=== PATIENT | male | born 2000 | race African-American/Black ===

== ENCOUNTER 2020-11-20 11:30 | Emergency (ER) | payer OTHER ==
[2020-11-20 11:45] VITALS: BP 136/68
--- NOTE | 2020-11-20 12:40 | ED Physician Documentation ---
History of Present Illness - Stated complaint Stated Complaint: SOA - Chief complaint Chief Complaint: Resp - Additonal information Additional information: 20-year-old male presents to the emergency department for evaluation of 2 days cough, sore throat, congestion, loss of taste and smell. He also reports feeling somewhat short of air. He is fully vaccinated against Covid 19. Denies known sick contacts. He is in the [place]. Review of Systems Constitutional: denies: Fever, Chills Eyes: reports: Reviewed and negative Ears: reports: Reviewed and negative Nose: reports: Rhinorrhea / runny nose, Congestion, Other (loss of smell) Throat: reports: Sore throat Cardiac: reports: Chest pain / pressure, Palpitations Respiratory: reports: Dyspnea, Cough GI: reports: Abdominal Pain, Nausea, Vomiting : denies: Dysuria, Frequency, Hesitancy Skin: reports: Reviewed and negative Musculoskeletal: reports: Reviewed and negative PD PAST MEDICAL HISTORY - Allergies Allergies/Adverse Reactions: Allergies Allergy/AdvReac Type Severity Reaction Status Date / Time No Known Drug Allergies Allergy Verified 11/20/20 11:45 PD ED PE EXPANDED - General General: Alert, No acute distress, Well developed/nourished - HEENT HEENT: Rhinorrhea, Moist mucous membranes, Pharyngeal erythema. No: Swollen tonsils, Tonsillar exudate, CURRENCY EXAMINER - Neck Neck: Supple w/out meningeal sx. No: Adenopathy - Cardiac Cardiac: Regular Rate, Radial strong equal, Pedal strong equal, Cap refill < 2 sec - Respiratory Respiratory: Clear to ausultation chang. No: Distress, Labored - Abdomen Abdomen: Normal Bowel sounds. No: Tender to palpation - Derm Derm: Normal color, Warm and dry. No: Rash - Extremities Extremities: Normal. No: Deformity, Tenderness - Neuro Neuro: Alert and Oriented X 3, CNII-XII intact Results - Vitals Vitals: Vital Signs - 24 hr 11/20/20 11:41 Temperature 37.0 C Heart Rate 87 Respiratory 16 Rate Blood Pressure 136/68 H O2 Saturation 98 Oxygen O2 Source Room air PD MEDICAL DECISION MAKING - ED course Complexity details: reviewed results, re-evaluated patient, d/w patient ED course: 20-year-old male presents emergency department for evaluation of upper respiratory infections that include cough, congestion loss of taste smell and sore throat. Rapid strep is negative. However symptoms are more concerning for Covid. His cardiopulmonary exam is fairly unremarkable. No hypoxia or distress on room air. Covid test is pending. Advise quarantine until test results known. Emergent return precautions discussed. Departure - Departure Disposition: 01 Home, Self Care Clinical Impression: Upper respiratory infection Qualifiers: URI type: unspecified viral URI Qualified Code(s): J06.9 - Acute upper respiratory infection, unspecified Condition: Stable Record reviewed to determine appropriate education?: Yes Comments: Your strep testing is negative. But given the symptoms that you have we are screening you for COVID-19. You have a Covid test pending. You need to self quarantine until the result is done and negative. Do not leave your house. Do not get near anybody. The results should be done in 48 to 72 hours. We will call with a positive result, the fastest way to get a negative result for confirmation though is to go to the hospital website at [email or web address], click on the my [facility] tab and sign up for the patient portal. If any friends or family get sick and would like to have a Covid test done, but do not have signs or symptoms that would necessitate being hospitalized, we encourage testing through our coronavirus swabbing station, call [phone] to schedule an appointment.
[2020-11-20 12:41] LABS: RAPID STREP SCREEN Negative (Negative)
== END 2020-11-20 13:13 | disposition home or self-care (01) ==
LOC: ED 11:30
DX: J06.9 Acute upper respiratory infection, unspecified (principal); Z20.828 Contact with and (suspected) exposure to other viral communicable diseases
CPT/HCPCS: 87070; 87077; 87430; 99283

== ENCOUNTER 2021-05-27 12:10 | Outpatient (CLI) | payer OTHER | END 2021-05-27 12:11 | disposition home or self-care (01) | LOC: SC 12:10 | PROVIDERS: ATTEND Nurse Practitioner Family | DX: Z53.9 Procedure and treatment not carried out, unspecified reason (principal) ==

== ENCOUNTER 2021-05-31 10:19 | Outpatient (CLI) | payer OTHER ==
--- NOTE | 2021-05-31 10:59 | SLEEP CARE CONSULTATION ---
Information from patient questionnaire entered by Israel Orozco. I have reviewed and concur with the information entered by Israel Orozco. This document represents the service I personally performed and the decisions made by me, Piper Llanes ARNP. History of Present Illness Service Date and Time: 05/31/2021 1019 Reason for Visit: New patient Chief Complaint: reports: Unrefreshed sleep, Snoring, Observed pauses in breathing, Fatigue Date of Onset: 3 years Usual bedtime: 8:00 PM Time it takes to fall asleep: 20 minutes Snores at night: Yes Observed to quit breathing while asleep: Yes Sleeps alone due to snoring: No Number of times waking at night: 2 Reasons for waking at night: reports: Choking, Snoring, Gasping for air, Bathroom Toss, Turn, or Twitch while sleeping: Yes Recalls having dreams: No (rare) Usually gets out of bed at: 5:20 AM; 0600 on weekends Feels refreshed in the morning: No Morning headache: No Sleepy or fatigued during the day: Yes Ever fallen asleep while driving: No Takes day naps: Yes (mostly on a weekend, not often) Dreams during day naps: No Prior sleep studies: No Additional HPI information: I had the pleasure of seeing TERRENCE MCDONOUGH today regarding the possibility of him having a sleep disorder. His current complaints are unrefreshed sleep, snoring, fatigue and observed pauses in breathing. He comes in today because of his loud snoring and daily fatigue. His has seen him stop breathing in his sleep. She will wake him up to get him to breathe. He states it happens whether he is on his back or sides. He is just here to get this checked out for his . He has been snoring since he was 15 years old. He has had other tell him they can hear him snoring in their room down the [address]. He has gained some weight over the last few years. 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 Patient is Single and lives in [place]. Have you smoked in the past 12 months: No Alcohol use: Yes Alcohol amount and frequency: A little 2 times a month Caffeine use: Yes Caffeine amount and frequency: A little 2 times a month Family History Family history of sleep disordered breathing: Yes Family Hx Sleep Apnea: Father: Snoring Allergies and Home Medications Drug allergies reviewed: Yes (NKDA) Home medication list reviewed: Yes (no daily medications or supplements) Review of Systems Weight gain over past 5 years: 40 Cardiovascular: denies: high blood pressure Gastrointestinal: denies: heartburn Neurological: denies: headaches Psychiatric: denies: anxiety, depression, mood disorder Ear/Nose/Throat: reports: wisdom teeth removed. denies: injury to nose, tonsillectomy Musculoskeletal: reports: neck pain, back pain Immunologic: reports: allergies to food or environment (pet dander/saliva) Physical Exam Vital signs obtained and entered by: LO Fishman Blood Pressure: 122/92 (left) Cuff size: wrist Heart Rate: 72 O2 Saturation: 97 Height: 5 ft 5 in Weight: 275 lb (with uniform) Body Mass Index: 45.7 BMI Classification: Morbidly Obese Neck circumference: 15 (inches) Mouth and throat: narrow oropharynx Soft palate: long Hard palate: normal Uvula: normal Uvula visualization: 25% Mallampati Class III Tongue: normal in size Tonsils: 1+ Neck: normal w/o lymphadenopathy or thyromegaly Heart: regular rate and rhythm Lungs: clear bilaterally Impression and Plan 1. Suspected Obstructive Sleep Apnea-Hypopnea Syndrome, as suggested by a history of loud and irregular snoring, observed cessation of breath while asleep, gasping or choking in sleep, unrefreshed sleep, and excessive daytime sleepiness. Narrow oropharynx and obesity are common predisposing factors for obstructive sleep apnea-hypopnea syndrome. I recommend proceeding to polysomnography to confirm the diagnosis and to assess severity. If the patient has significant sleep disordered breathing, a manual CPAP titration study will also be performed to find the optimal treatment pressure. I informed the patient of what the sleep studies involve and after some discussion, obtained agreement to proceed. The pathophysiology of obstructive sleep apnea-hypopnea syndrome was discussed with the patient and health risks of cardiovascular and cerebrovascular disease if not treated. 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 Patient agreed to plan. * Schedule polysomnography +- manual CPAP titration study and return in 1-2 weeks after the study to discuss result and initiate therapy. * Avoid long distance driving or driving when feeling sleepy. * Avoid alcohol, sedative and muscle relaxant around bedtime. * Attempt to lose weight. * Review instructions provided by trained office staff on how to prepare for the sleep study. * Return for follow-up after sleep study completed. Counseling Topics: Weight loss health impact Time Spent with Patient (minutes): 30
[2021-05-31 11:00] VITALS: BP 122/92
== END 2021-05-31 10:20 | disposition home or self-care (01) ==
LOC: SC 10:19
PROVIDERS: ATTEND Nurse Practitioner Family
DX: R06.83 Snoring (principal); G47.8 Other sleep disorders; G47.10 Hypersomnia, unspecified; R06.81 Apnea, not elsewhere classified; E66.01 Morbid (severe) obesity due to excess calories; Z68.42 Body mass index [BMI] 45.0-49.9, adult
CPT/HCPCS: 99203; 99212

== ENCOUNTER 2021-06-09 10:08 | Outpatient (CLI) | payer OTHER | END 2021-06-09 10:09 | disposition home or self-care (01) | LOC: SC 10:08 | PROVIDERS: ATTEND Nurse Practitioner Family | DX: G47.33 Obstructive sleep apnea (adult) (pediatric) (principal); R09.02 Hypoxemia | CPT/HCPCS: 95806 ==

== ENCOUNTER 2021-06-28 09:21 | Outpatient (CLI) | payer OTHER ==
[2021-06-28 09:55] VITALS: BP 127/80
--- NOTE | 2021-06-28 09:55 | SLEEP CARE CONSULTATION ---
Information from patient questionnaire entered by Katie Fishman MA. I have reviewed and concur with the information entered by Katie Fishman MA. This document represents the service I personally performed and the decisions made by , Piper Llanes ARNP. History of Present Illness Service Date and Time: 06/28/2021 09 Initial [place] Sleepiness Scale score: 13 (in 2021) Current [place] Sleepiness Scale score: 13 (2021) Additional HPI information: TERRENCE MCDONOUGH returns for follow up and results of the recently performed home sleep study. I explained the pathophysiology behind obstructive sleep apnea. We then spent quite a bit of time discussing different treatment options. For mild obstructive sleep apnea, surgery and oral appliance are alternatives to nasal CPAP therapy but in moderate or severe cases, nasal CPAP is the most effective and reliable treatment. Because apnea is primarily in supine position, then positional management therapy could be effective. Methods discussed such as positioning with pillows to prevent supine sleep. I reviewed the impact of weight changes on sleep apnea and strongly recommended losing weight. After some discussion, the patient opted to go with the nasal CPAP therapy. Nasal autoCPAP set at 4-15 cmH20 will be ordered with rationale explained. A manual titration study will be ordered if unable to find optimal pressure with office adjustments. I explained how CPAP machine works and what to expect when using the machine. Using CPAP every night in order to get used to it was emphasized. Patient advised to put CPAP mask on before getting into bed so as not to fall asleep without CPAP. To assist acclimation to CPAP use, it could also be used for a short time during day while reading or watching TV. The patient was instructed to call the CPAP supplier to discuss any mechanical problem that may occur. If the mask given is uncomfortable or is difficult to keep on through the night even with adjustment, contact the CPAP supplier as many will replace with anothe r mask style if notified before 30 days. If snoring or perceives is not getting enough air or too much air from the machine, notify this office. [facility] patient education PAP tips reviewed and given to patient. Patient counseled not drink alcohol less than 4 hours before bedtime as it can increase snoring and apnea. Patient was cautioned about risks of drowsy driving until sleepiness symptoms resolve. Sleep Study - Results Type of Sleep Study: Home sleep study (F/U HOMESTUDY) Prior sleep studies: No Polysomnography/Home Sleep Study results: Physician Impression: The quality of the study is good. The length of the study is adequate (> 240 minutes). Please also see the tabulated and graphic data. 1. Obstructive Sleep Apnea-Hypopnea (ICD-10 G47.33), mild, with an AHI of 14.8/hr and rafi SaO2 of 81%. During the study, the patient had 47 apneas (47 obstructive, 0 central, 0 mixed) and 57 hypopneas. The longest episode lasted 90.0 seconds. The respiratory events occurred almost exclusively during supine sleep (supine AHI was 19.0 and non-supine, 4.82). 2. Hypoxemia (ICD-10 R09.02), mild, with the lowest oxygen saturation of 81 % and 30.4 minutes with SaO2 under 90%. Baseline oxygen saturation was normal (Average oxygen saturation was 94%). Allergies and Home Medications Known drug allergies: No Drug allergies reviewed: Yes Home medication list reviewed: Yes (no changes) Allergy and home medication list: Allergies No Known Drug Allergies Allergy (Verified 11/20/20 11:45) Review of Systems Review of systems same as previous: Yes (no changes) Physical Exam Vital signs obtained and entered by: LO Mendez Blood Pressure: 127/80 (RIGHT, PULSE 74) Cuff size: wrist Heart Rate: 78 O2 Saturation: 98 (WITH PAPER MASK) Height: 5 ft 6 in Weight: 190 lb (WITH CLOTHES) Body Mass Index: 30.7 BMI Classification: Obese Impression and Plan 1. Obstructive Sleep Apnea-Hypopnea Syndrome, mild, with lowest oxygen saturation of 81%. Obviously this is the cause of the patients symptoms of unrefreshed sleep, and excessive daytime sleepiness. Positive pressure therapy could benefit his overall health and reduce risks for cardiovascular and cerebrovascular adverse events. As mentioned above, the patient will be started on nasal autoCPAP therapy with pressure set at 4-15 cmH2O. A manual titration study will be completed if unable to find optimal treatment pressure with office adjustments. Compliance guidelines also reviewed. A copy of compliance guidelines will be given for reference at check out. Because the apnea is more severe supine, I instructed to avoid sleeping supine using pillow positioning until able to start CPAP use. 2. Hypoxemia, mild, with the lowest oxygen saturation of 81 % and 30.4 minutes with SaO2 under 90%. His baseline oxygen saturation was normal with an average oxygen saturation of 94%. * Nasal auto CPAP therapy, pressure at 4-15 cm H2O. * Attempt to lose weight. * Avoid alcohol consumption near bedtime. * Avoid supine sleep until using CPAP. * The patient is again cautioned about driving until sleepiness completely resolves. * Return one month after CPAP obtained. I will assess response to therapy and compliance at that time. Counseling Topics: Weight loss health impact Visit Type: In Office Time Spent with Patient (minutes): 20 Provider Statement: I spent 100% of the Face to Face Visit with the patient with greater than 50% spent counseling the patient and coordination of care.
== END 2021-06-28 09:22 | disposition home or self-care (01) ==
LOC: SC 09:21
PROVIDERS: ATTEND Nurse Practitioner Family
DX: G47.33 Obstructive sleep apnea (adult) (pediatric) (principal); E66.9 Obesity, unspecified; Z68.30 Body mass index [BMI] 30.0-30.9, adult; R09.02 Hypoxemia
CPT/HCPCS: 99212; 99213